=== PATIENT | male | born 1985 | race African-American/Black ===

== ENCOUNTER 2023-06-24 14:37 | Emergency (ER) | payer SELFPAY ==
[~2023-06-24] VITALS: Ht 170.2 cm; Wt 68.2 kg
[2023-06-24 15:11] VITALS: TEMP 98.3
[2023-06-24 15:18] VITALS: BP 109/79; PULSE 78; RESP 18
[2023-06-24] MEDS ORDERED: ACET-66 PO (15:35)
[2023-06-24] MEDS ORDERED: ACETAMINOPHEN 500 MG TABLET PO ONE (15:45)
== END 2023-06-24 16:13 | disposition home or self-care (01) ==
LOC: EMS 14:39
DX: H57.13 Ocular pain, bilateral (principal)
CPT/HCPCS: 99282; Z7502; Z7610

== ENCOUNTER 2023-06-28 11:53 | Emergency (ER) | payer SELFPAY ==
[~2023-06-28 11:53] MED LIST: ACET-66 PO
== END 2023-06-28 12:22 | disposition left against medical advice (07) ==
LOC: EMS 11:53
DX: Z53.21 Procedure and treatment not carried out due to patient leaving prior to being seen by health care provider (principal)